=== PATIENT | female | born 1980 | race Caucasian/White ===

== ENCOUNTER 2024-05-09 07:36 | Outpatient (CLI) | payer OTHER, SELFPAY | END 2024-05-09 07:37 | disposition home or self-care (01) | PROVIDERS: PCP Physician Assistant Medical; Visit Provider Physician Assistant Medical | DX: Z00.00 Encounter for general adult medical examination without abnormal findings (principal); E66.3 Overweight; Z13.6 Encounter for screening for cardiovascular disorders | CPT/HCPCS: 80053; 80061; 84443 ==

== ENCOUNTER 2024-08-14 12:57 | Outpatient (CLI) | payer OTHER, SELFPAY | END 2024-08-14 12:58 | disposition home or self-care (01) | LOC: MAMMO 12:58 | PROVIDERS: PCP Physician Assistant Medical; Visit Provider Physician Assistant Medical | DX: Z12.31 Encounter for screening mammogram for malignant neoplasm of breast (principal) | CPT/HCPCS: 77063; 77067 ==